=== PATIENT | female | born 2000 | race Caucasian/White ===

== ENCOUNTER 2023-03-27 09:07 | Emergency (ER) | payer SELFPAY ==
[~2023-03-27] VITALS: Ht 157.5 cm; Wt 58.0 kg
[2023-03-27 09:16] VITALS: O2SAT 98
[2023-03-27 10:00] VITALS: BP 109/77; PULSE 99; RESP 20; TEMP 98.3
[2023-03-27] MEDS ORDERED: IBUPROFEN 600MG TABLET PO ONE (10:00)
[2023-03-27] MEDS ORDERED: ACETAMINOPHEN 500MG TABLET PO ONE (10:00)
== END 2023-03-27 16:59 | disposition home or self-care (01) ==
LOC: ER 09:07
DX: M79.10 Myalgia, unspecified site (principal); R51.9 Headache, unspecified; D64.9 Anemia, unspecified; Y08.89XA Assault by other specified means, initial encounter; Y93.89 Activity, other specified; Y92.89 Other specified places as the place of occurrence of the external cause; Y99.8 Other external cause status
CPT/HCPCS: 81025; 99283